=== PATIENT | male | born 1970 | race Caucasian/White ===

== ENCOUNTER → 2016-12-11 | Emergency (ER) | payer BC ==
[~2016-12-11] MED LIST: KETOROLAC TROMETHAMINE 30 MG/1 ML VIAL IVPUSH ONE; KETOROLAC TROMETHAMINE 30 MG/1 ML VIAL ONE; SODIUM CHLORIDE 1,000 ML IV STA; diazePAM CARPU-JECT 10 MG/2 ML DISP.SYRIN IVPUSH ONE; diazePAM CARPU-JECT 10 MG/2 ML DISP.SYRIN ONE; morphine CARPU-JECT 4 MG/1 ML DISP.SYRIN IVPUSH ONE; morphine CARPU-JECT 4 MG/1 ML DISP.SYRIN ONE
[2016-12-11 01:07] VITALS: BMI 24.2
--- NOTE | 2016-12-11 02:09 | PDOC ---
History of Present Illness - General Chief Complaint: Pain, Acute Stated Complaint: SHOULDER/NECK PAIN Time Seen by Provider: 12/11/16 01:09 History Source: Patient Exam Limitations: No Limitations - History of Present Illness Initial Comments: 12/11/16 02:09 46yo Male patient with no significant past medical history presents to ED c/o atraumatic neck and shoulder pain that began this morning around 10am, but worsened tonight. Patient has been taking Ibuprofen and Flexeril medications that are a year old. He denies fall, injury, trauma, CP, Back pain, Diff breathing, n/v/d, Abd pain, fever or any other complaints at this time. Timing/Duration: getting worse Severity: moderate Modifying Factors: improves with: medication Associated Symptoms: denies: denies symptoms, chest pain, cough, diaphoresis, fever/chills, headaches, loss of appetite, malaise, nausea/vomiting, rash, seizure, shortness of breath, syncope, weakness, other Aspirin Received prior to arrival: No: no aspirin today, unknown, 81 mg x 1, 81 mg x 2, 81 mg x 3, 81 mg x 4, 325 mg x 1, provided at home, provided by EMS, provided by [facility] Contraindications(Core Measure): No: Allergy, Other, Active Blding w/i 24 hrs., Plavix, Receiving Warfarin Beta Shirlene Contraindications(Core Measure): No: Not Prescribed, Allergy, Bradycardia (HR <60bpm), Advanced Heart Block, Pacemaker, Other Past History - Travel Traveled outside of the country in the last 30 days: No Close contact w/someone who was outside of country & ill: No - Past Medical History Allergies/Adverse Reactions: Allergies Allergy/AdvReac Type Severity Reaction Status Date / Time No Known Allergies Allergy Verified 12/11/16 01:02 Home Medications: Ambulatory Orders Cyclobenzaprine HCl [Flexeril 10 mg] 10 mg PO BID PRN 12/11/16 Ibuprofen 600 mg PO Q6H PRN 12/11/16 Methocarbamol [Robaxin -] 500 mg PO TID PRN #30 tablet 12/11/16 Tramadol HCl 50 mg PO Q6H PRN #16 tablet MDD 4 tabs 12/11/16 Other medical history: denies - Psycho/Social/Smoking Cessation Hx Suicidal Ideation: No Smoking History: Never smoked Have you smoked in the past 12 months: No Information on smoking cessation initiated: No Hx Alcohol Use: No Drug/Substance Use Hx: No Substance Use Type: None Review of Systems - Review of Systems Able to Perform ROS?: Yes Is the patient limited Surinamese proficient: No Constitutional: No: Chills, Fever Musculoskeletal: Yes: Joint Pain, Neck Pain All Other Systems: Reviewed and Negative *Physical Exam - Vital Signs Last Vital Signs Temp Pulse Resp BP Pulse Ox 98.1 F 62 14 140/90 99 12/11/16 00:59 12/11/16 00:59 12/11/16 00:59 12/11/16 00:59 12/11/16 00:59 - Physical Exam General Appearance: Yes: Nourished, Appropriately Dressed, Mild Distress. No: Apparent Distress, Moderate Distress, Severe Distress HEENT: positive: EOMI, ANNE, Normal ENT Inspection, Normal Voice, Symmetrical, TMs Normal, Pharynx Normal. negative: Pharyngeal Erythema, Tonsillar Exudate, Tonsillar Erythema, Nasal Congestion, Rhinorrhea, TM Bulging, TM Dull, TM Erythema Neck: positive: Trachea midline, Normal Thyroid, Supple, Tender lateral. negative: Rigid, Lymphadenopathy (R), Lymphadenopathy (L), Tender midline Respiratory/Chest: positive: Lungs Clear, Normal Breath Sounds. negative: Chest Tender, Respiratory Distress, Accessory Muscle Use, Labored Respiration, Rapid RR, Rhonchi, Stridor, Wheezing Cardiovascular: positive: Regular Rhythm, Regular Rate Gastrointestinal/Abdominal: positive: Normal Bowel Sounds, Soft. negative: Distended, Guarding, Rebound, Tenderness Musculoskeletal: positive: Normal Inspection. negative: CVA Tenderness Extremity: positive: Normal Capillary Refill, Normal Inspection, Normal Range of Motion. 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, Fully Oriented, Alert, Normal Mood/ Affect, Normal Response, Motor Strength 5/5 Heart Score/ECG Review - ECG Impressions Normal ECG: Yes Non-specific ST Elevation: No Ischemic Changes: No Bradycardia: Yes Torsades iván Pointes: No WPW: No ED Treatment Course - RADIOLOGY Radiology Studies Ordered: Category Date Time Status CERVICAL SPINE CT W/O CONTR [CT] Stat CT Scan 12/11/16 01:53 Ordered *DC/Admit/Observation/Transfer Diagnosis at time of Disposition: Muscle spasm of right shoulder, Neck pain - Discharge Dispostion Disposition: HOME Condition at time of disposition: Improved Admit: No - Prescriptions Prescriptions: Methocarbamol [Robaxin -] 500 mg PO TID PRN #30 tablet PRN Reason: Neck and Shoulder Pain Tramadol HCl 50 mg PO Q6H PRN #16 tablet MDD 4 tabs PRN Reason: Severe Pain - Referrals Referrals: Wilber Turner MD [Staff Physician] - - Patient Instructions Printed Discharge Instructions: DI for Neck Pain, DI for Shoulder Pain Additional Instructions: FOLLOW UP WITH DR. TURNER (ORTHOPEDIST) OR YOUR PRIMARY CARE PROVIDER. CALL TO SCHEDULE APPOINTMENT. TAKE WARM SHOWERS. REST. TAKE MEDICATIONS PRESCRIBED. DO NOT DRIVE, DRINK ALCOHOL, OR OPERATE HEAVY MACHINERY WHILE TAKING ROBAXIN OR TRAMADOL. NO WORK X 1 DAY. Print Language: JORDANIAN - Post Discharge Activity Work/School Note: Back to Work
--- NOTE | 2016-12-11 03:27 | PDOC ---
*Physical Exam - Vital Signs Last Vital Signs Temp Pulse Resp BP Pulse Ox 98.1 F 62 14 140/90 99 12/11/16 00:59 12/11/16 00:59 12/11/16 00:59 12/11/16 00:59 12/11/16 00:59 ED Treatment Course - Medications Given in the ED: ED Medications Discontinued Medications Generic Name Dose Route Start Last Admin Trade Name Romulo PRN Reason Stop Dose Admin Diazepam 5 mg 12/11/16 01:53 12/11/16 02:15 Valium Injection - IVPUSH 12/11/16 01:54 5 mg ONCE ONE Administration Sodium Chloride 1,000 mls @ 1,000 mls/hr 12/11/16 01:53 12/11/16 02:15 Normal Saline - IV 12/11/16 02:52 1,000 mls/hr ASDIR STA Administration Ketorolac Tromethamine 30 mg 12/11/16 01:53 12/11/16 02:14 Toradol Injection - IVPUSH 12/11/16 01:54 30 mg ONCE ONE Administration Morphine Sulfate 4 mg 12/11/16 03:09 12/11/16 03:22 Morphine Injection - IVPUSH 12/11/16 03:10 4 mg ONCE ONE Administration Medical Decision Making - Medical Decision Making 12/11/16 03:27 agree with care from BULMARO Quiles *DC/Admit/Observation/Transfer Diagnosis at time of Disposition: Muscle spasm of right shoulder, Neck pain - Discharge Dispostion Disposition: HOME - Prescriptions Prescriptions: Methocarbamol [Robaxin -] 500 mg PO TID PRN #30 tablet PRN Reason: Neck and Shoulder Pain Tramadol HCl 50 mg PO Q6H PRN #16 tablet MDD 4 tabs PRN Reason: Severe Pain - Referrals Referrals: Wilber Turner MD [Staff Physician] - - Patient Instructions Printed Discharge Instructions: DI for Shoulder Pain, DI for Neck Pain Additional Instructions: FOLLOW UP WITH DR. TURNER (ORTHOPEDIST) OR YOUR PRIMARY CARE PROVIDER. CALL TO SCHEDULE APPOINTMENT. TAKE WARM SHOWERS. REST. TAKE MEDICATIONS PRESCRIBED. DO NOT DRIVE, DRINK ALCOHOL, OR OPERATE HEAVY MACHINERY WHILE TAKING ROBAXIN OR TRAMADOL. NO WORK X 1 DAY. Print Language: YORUBA - Post Discharge Activity Work/School Note: Back to Work
[2016-12-11 04:59] VITALS: BP 120/86; PULSE 58; TEMP 98.3
--- NOTE | 2016-12-11 11:36 | EKG ---
Test Reason : Blood Pressure : / mmHG Vent. Rate : 049 BPM Atrial Rate : 049 BPM P-R Int : 148 ms QRS Dur : 084 ms QT Int : 432 ms P-R-T Axes : 051 -09 -01 degrees QTc Int : 390 ms SINUS BRADYCARDIA OTHERWISE NORMAL ECG NO PREVIOUS ECGS AVAILABLE Confirmed by CAMILO SMITH MD ([id number]) on 12/11/2016 11:36:02 AM Referred By: Confirmed By:CAMILO SMITH MD
== END | disposition home or self-care (01) ==
LOC: JER 00:48
PROC: 3E033NZ Introduction of Analgesics, Hypnotics, Sedatives into Peripheral Vein, Percutaneous Approach (ICD-10-PCS; principal; 2016-12-11)
PROC: 3E0333Z Introduction of Anti-inflammatory into Peripheral Vein, Percutaneous Approach (ICD-10-PCS; 2016-12-11)
PROC: 3E033GC Introduction of Other Therapeutic Substance into Peripheral Vein, Percutaneous Approach (ICD-10-PCS; 2016-12-11)
DX: M62.838 Other muscle spasm (principal)
CPT/HCPCS: 72125-TC; 93005; 93010; 99282-25